=== PATIENT | male | born 1985 | race Caucasian/White ===

== ENCOUNTER 2023-12-23 15:53 | Outpatient (AMB) | payer BC, SELFPAY ==
--- NOTE | 2023-12-23 15:58 | MHC.PC.OV ---
Vital Signs 12/23/23 16:04 12/23/23 16:52 Height 5 ft 11 in Weight 210 lb BMI 29.3 BP 136/88 132/76 Blood Pressure Location Lt brachial Rt brachial Position Sitting Sitting Pulse 103 H 90 Pulse Source Pulse Oximeter Pulse Oximetry (%) 98 Oxygen Delivery Method Room Air Intake Visit Reasons: order checker packer processer, requests physical Intake Note: pt is here to establish care with PCP. Requesting PE Allergies amoxicillin [AMOXICILLIN] Allergy (Unknown, Verified 12/23/23 15:59) HIVES, ? reaction , rash Penicillins [PENICILLINS] Allergy (Unknown, Verified 12/23/23 15:59) HIVES Medication List - Last Reconciled 12/23/23 by SHEMAR Ngo Tobacco use date assessed: 12/23/23 Dental Screening Dental Screen Date: 12/23/23 Did you have a dental visit in the last 12 months?: Yes Did you have a dental problem in the last 6 months where you did not have access to dental care?: No Was dental information given to patient?: Patient has dentist HPI order checker packer processer, requests physical HPI Details New pt is here for a PE. Will order labs. Pt c/o increased allergy symptoms. He is currently taking claritin D which is not helping. Will have pt stop this and start cetirizine 2 tabs bid. Pt c/o right hand numbness. He is a diesel automotive technician. Will order EMG/nerve conduction testing. [facility] Surgical History No pertinent past surgical history Social History Housing: House Patient Tobacco Use Status: Former Tobacco user Tobacco use type: Cigarette e-Cigarette/Vaping Use: Never Used service: Yes Current occupational status: employed Cognitive needs: No Hearing needs: No Vision needs: No Questionnaire PHQ-9 Over the last 2 weeks, how often have you been bothered by any of the following problems? 43589 - PHQ-9 Billing: Patient declined-do not bill Source: Developed by Drs. Galileo Tong, Jennifer Nielson, Stanley Holguin and colleagues, with an educational harpal from [employer]. WARREN-7 AMB Questionnaire WARREN-7 Assessment Billing WARREN-7 Assessment Tool: pt declined-do not bill Review of Systems Const Denies chills and Denies fever(s) Eyes Denies blurry vision ENT Denies vertigo, Denies dizziness and Denies sore throat Card Denies chest pain at rest, Denies chest pain with activity, Denies diaphoresis, Denies dyspnea and Denies dyspnea on exertion Resp Denies cough, Denies dyspnea, Denies dyspnea on exertion and Denies wheezing GI Denies abdominal pain, Denies melena, Denies hematochezia, Denies constipation, Denies diarrhea and Denies loose stools Denies hematuria Musc Denies numbness and Denies tingling Skin/Breast Denies lesions Neuro Denies vertigo, Denies dizziness, Denies numbness and Denies tingling Psych Denies anxiety, Denies depression, Denies homicidal ideation, Denies suicidal ideation and Denies other (substance abuse) Aller/Immun Denies wheezing Physical exam (Primary Care) Vital Signs: Last Vital Signs Pulse 103 H 12/23/23 16:04 BP 132/76 12/23/23 16:52 Pulse Ox 98 12/23/23 16:04 Oxygen Delivery Method Room Air 12/23/23 16:04 BMI result Body Mass Index 29.3 Tobacco/Smoking Status: Tobacco use Status Tobacco use date assessed 12/23/23 12/23/23 16:04 Patient Tobacco Use Status Former Tobacco user 12/23/23 16:10 Tobacco use type Cigarette 12/23/23 16:10 e-Cigarette/Vaping Use Never Used 12/23/23 16:04 PHQ-9: PHQ-9 Score PHQ-9: Total score 0 12/23/23 16:04 Thrive Assessment: Date of Thrive Assessment Date Thrive assessed 12/23/23 16:10 Const General: cooperative Nutritional Appearance: well nourished Orientation/consciousness: patient oriented x3 HENMT Head: Yes normal to inspection, Yes normocephalic and Yes atraumatic Ears: TM's normal bilaterally Eyes General: appearance normal, both eyes and all related structures Alignment and Position: alignment normal and position normal Neck Neck: Yes normal visual inspection and Yes no lymphadenopathy Thyroid: Thyroid normal Resp Effort & Inspection: normal respiratory effort Auscultation: clear to auscultation bilaterally Cardio Rate: regular rate Rhythm: regular rhythm Heart sounds: S1 normal heart sound present, S2 normal heart sound present and no murmurs GI Palpation (GI): Soft to palpation and nontender Auscultation: normal bowel sounds Male General Exam: Yes normal external exam Penis: normal penis Scrotum: scrotum normal, testes descended bilaterally and no inguinal hernias Testes: no testicular mass Skin Other: vesicular lesions to left hand dorsal aspect (poison vaishali), singular vesicular lesions to bilat ankles (poison vaishali) Rashes: no rashes Neuro General: patient oriented x3, moves all extremities, no focal motor deficits and deep tendon reflexes 2+ bilaterally Romberg Test: Negative Extrem Other: + phalens to right, - tinels Psych Appearance: grossly normal Mental Status: mental status grossly normal Speech and movement: Normal speech and movement present Affect: normal affect Attitude: cooperative Thought process: Normal thought process present Thought content: Normal thought content present Insight: Good insight present (Psych) Judgement: Good judgement present (Psych) Assessment and Plan Assessment & Plan (1) Encounter for routine adult physical exam with abnormal findings: Code(s): Z00. - Encounter for general adult medical examination with abnormal findings Plan: Labs ordered (2) Poison vaishali: Code(s): L23.7 - Allergic contact dermatitis due to plants, except food Plan: Improving (3) Numbness of right hand: Code(s): R20.0 - Anesthesia of skin Plan: EMG and nerve conduction. will have him wear a wrist brace at night Plan The patient agreed to the use of a medical laboratory assistant for this encounter. Scribed for SHEMAR Zabala by Che Gan medical laboratory assistant, on 12/23/2023 at 16:35 EST. Orders: Orders Comprehensive [place]. Panel Fast Today Z00.01 - Encounter for general adult medical examination with abnormal findings UA CC w/rflx Micro + Cult Today Z00.01 - Encounter for general adult medical examination with abnormal findings NE electromyogram (EMG) Today R20.0 - Anesthesia of skin NE nerve conduction velocity Today R20.0 - Anesthesia of skin Complete Blood Count Auto Diff Today Z00.01 - Encounter for general adult medical examination with abnormal findings TSH reflex Free T4 Today Z00.01 - Encounter for general adult medical examination with abnormal findings Lipid Panel Today Z00. - Encounter for general adult medical examination with abnormal findings Coding Level of Care Code New Pt Prev Care 18-39yr(00939 Diagnoses Encounter for routine adult physical exam with abnormal findings Z00.01 Poison vaishali L23.7 Numbness of right hand R20.0
[2023-12-23 16:04] VITALS: BP 136/88; PULSE 103; O2SAT 98; BMI 29.3
[2023-12-23 16:52] VITALS: BP 132/76; PULSE 90
== END 2023-12-23 17:01 | disposition home or self-care (01) ==
PROVIDERS: PCP Nurse Practitioner Family; Visit Provider Nurse Practitioner Family
DX: Z00.00 Encounter for general adult medical examination without abnormal findings (principal); L23.7 Allergic contact dermatitis due to plants, except food; R20.0 Anesthesia of skin
CPT/HCPCS: 99385

== ENCOUNTER 2025-01-18 14:46 | Outpatient (AMB) | payer BC, SELFPAY ==
[2025-01-18 14:51] VITALS: BP 140/92; PULSE 103; RESP 16; O2SAT 98; BMI 26.6
--- NOTE | 2025-01-18 14:51 | A.OFFPC_ITS ---
Vital Signs 01/18/25 14:51 01/18/25 15:33 Height 5 ft 11 in Weight 191 lb BMI 26.6 BP 140/92 H 126/88 Blood Pressure Location Lt brachial Rt brachial Position Sitting Sitting Respiration 16 Pulse 103 H Pulse Source Pulse Oximeter Pulse Oximetry (%) 98 Oxygen Delivery Method Room Air Intake Visit Reasons: PE Blood Bank Laboratory Technician Required: No Allergies amoxicillin (AMOXICILLIN) Allergy (Unknown, Verified 01/18/25 15:24) HIVES, ? reaction , rash Penicillins (PENICILLINS) Allergy (Unknown, Verified 01/18/25 15:24) HIVES Medication List - Last [facility] Known Home Meds Tobacco use date assessed: 12/23/23 Dental Screening Dental Screen Date: 12/23/23 HPI PE HPI Details History of Present Illness The patient is a 39-year-old male presenting for a follow-up physical examination. He denies experiencing any chest pain, dyspnea, abdominal pain, hematochezia, constipation, or diarrhea. The patient reports experiencing significant stress related to work and family responsibilities. HX of allergies, will get resp allgery testing, pt reported all antihistamines made him very sleepy. elevated BP initially. Health Maintenance - Encouraged to complete fasting laborat ory tests in the near future Social History - Reports significant stress related to work and family responsibilities Review of Systems - Cardiovascular: Denies chest pain - Respiratory: Denies dyspnea - Gastrointestinal: Denies abdominal luci n, hematochezia, constipation, diarrhea Physical Exam General: Cooperative, healthy appearing, comfortable, no acute distress and well developed Orientation: Patient oriented x3 Limitations: No limitations Head: Normal to inspection Ears: Hearing grossly normal bilaterally Nose: Normal external nose present Face and sinus: Normal facial exam Eyes: Appearance normal, both eyes and all related structures Neck: Normal visual inspection and Yes full ROM Respiratory: Normal respiratory effort and able to speak in complete sentences. Clear to auscultation bilaterally Cardiovascular: Regular rate and rhythm. Normal S1 and S2 GI: Normal to inspection. Soft to palpation and nontender : testicles without masses/lesions and no hernias appreciated Skin: No rashes or lesions noted Neuro: Patient oriented x3 Extremities: Normal to inspection Results Plan The patient is advised to complete fasting laboratory tests in the near future to monitor his health status. He is encouraged to manage stress through appropriate coping mechanisms and to seek further consultation if stress becomes unmanageable. Discussion Notes I discussed with the patient the importance of completing fasting laboratory tests to assess his overall health. We also talked about stress management strategies and the importance of addressing stressors related to work and family. Patient Instructions - Schedule and complete fasting laborato ry tests soon - Practice stress management techniques and reach out if stress becomes overwhelming -BPs from home, drop off values in the n ear future. [facility] Surgical History No pertinent past surgical history Social History Housing: House Patient Tobacco Use Status: Former Tobacco user Tobacco use type: Cigarette e-Cigarette/Vaping Use: Never Used service: Yes Current occupational status: employed Cognitive needs: No Hearing needs: No Vision needs: No Questionnaire PHQ-9 Over the last 2 weeks, how often have you been bothered by any of the following problems? 1. Little interest or pleasure in doing things: not at all 2. Feeling down, depressed, or hopeless: not at all 3. Trouble falling or staying asleep, or sleeping too much: not at all 4. Feeling tired or having little energy: not at all 5. Poor appetite or overeating: not at all 6. Feeling bad about yourself - or that you are a failure or have let yourself or your family down: not at all 7. Trouble concentrating on things, such as reading the newspaper or watching television: not at all 8. Moving or speaking so slowly that other people could have noticed. Or the opposite - being so fidgety or restless that you have been moving around a lot more than usual: not at all 9. Thoughts that you would be better off or of hurting yourself in some way: not at all Total score: 0 Depression Screening Interpretation: Negative Depression Screening Done: Yes 99461 - PHQ-9 Billing: Yes Source: Developed by Drs. Galileo Tong, Jennifer Nielson, Stanley Holguin and colleagues, with an educational harpal from [employer]. Thrive Questionnaire I am a: Patient What is your living situation today?: I have a steady place to live Within the past 12 months, did the food you bought not last and you didn't have the money to get more?: I choose not to answer this question Within the past 12 months, did you worry whether your food would run out before you got money to buy more?: I choose not to answer this question Do you have trouble paying for medicines?: I choose not to answer this question Do you have trouble getting transportation to medical appointments?: I choose not to answer this question Do you have trouble paying your heating and electricity bill?: I choose not to answer this question Do you have trouble taking care of your child, family member or friend?: I choos e not to answer this question Do you have trouble with day-to-day activities such as bathing, preparing meals, shopping, managing finances, etc.?: I choose not to answer this question Are you currently unemployed and looking for a job?: I choose not to answer this question Are you interested in more education?: I choose not to answer this question Please select the resources that you would like help with: None Currently or been in a relationship where the following occur: I choose not to answer THRIVE Score: 0 AUDIT C Alcohol Use Questionnaire (AUDIT-C) 1. How often do you have a drink containing alcohol?: 2-4 times a month 2. How many drinks containing alcohol do you have on a typical day when you are drinking?: 3 or 4 3. How often do you have six or more drinks on one occasion?: Less than monthly Total Score: 4 Score Reviewed/Action Taken: Yes WARREN-7 AMB Questionnaire WARREN-7 Feeling nervous, anxious, or on edge: 1 = Several days Not being able to stop or control worryin = Not at all Worrying too much about different things: 0 = Not at all Trouble relaxin = Not at all Being so restless that it is hard to sit still: 0 = Not at all Becoming easily annoyed or irritable: 1 = Several days Feeling afraid as if something awful might happen: 1 = Several days Total WARREN-7 score (0-4 normal; 5-9 mild; 10-14 moderate; 15-21 severe): 3 Source: Developed by Drs. Galileo Tong, Jennifer Nielson, Stanley Holguin and colleagues, with an educational harpal from [employer]. WARREN-7 Assessment Billing WARREN-7 Assessment Tool: WARREN-7 Assessment 47401 Physical exam (Primary Care) Vital Signs: Last Vital Signs Pulse 103 H 01/18/25 14:51 Resp 16 01/18/25 14:51 BP 140/92 H 01/18/25 14:51 Pulse Ox 98 01/18/25 14:51 Oxygen Delivery Method Room Air 01/18/25 14:51 BMI result Body Mass Index 26.6 Tobacco/Smoking Status: Tobacco use Status Tobacco use date assessed 12/23/23 01/18/25 14:55 Patient Tobacco Use Status Former Tobacco user 01/18/25 14:55 Tobacco use type Cigarette 01/18/25 14:55 e-Cigarette/Vaping Use Never Used 01/18/25 14:55 PHQ-9: PHQ-9 Score PHQ-9: Total score 0 01/18/25 15:14 Depression Screening Interpretation: Negative Currently or been in a relationship where the following occur: I choose not to answer Coding Level of Care Code Est Pt Prev Care 18-39y(35555) Diagnoses Encounter for routine adult physical exam with abnormal findings Z00. Allergies T78.40XA Elevated BP without diagnosis of hypertension R03.0 Additional Codes WARREN-7 Assessment Billing - WARREN-7 Assessment Tool: WARREN-7 Assessment 52066 ([id number]) PHQ-9 - 89666 - PHQ-9 Billing: Yes ([id number]) Assessment & Plan Assessment & Plan (1) Encounter for routine adult physical exam with abnormal findings: Code(s): Z00. - Encounter for general adult medical examination with abnormal findings Category: Medical (2) Allergies: Code(s): T78.40XA - Allergy, unspecified, initial encounter Category: Medical (3) Elevated BP without diagnosis of hypertension: Code(s): R03.0 - Elevated blood-pressure reading, without diagnosis of hypertension Category: Medical Plan . Orders: Orders Complete Blood Count Auto Diff Today Z00.01 - Encounter for general adult medical examination with abnormal findings Comprehensive [place]. Panel Fast Today Z00.01 - Encounter for general adult medical examination with abnormal findings TSH reflex Free T4 Today Z00.01 - Encounter for general adult medical examination with abnormal findings UA CC w/rflx Micro + Cult Today Z00.01 - Encounter for general adult medical examination with abnormal findings Lipid Panel Today Z00.01 - Encounter for general adult medical examination with abnormal findings Resp Allergy Profile Region I Today T78.40XA - Allergy, unspecified, initial encounter
[2025-01-18 15:33] VITALS: BP 126/88
== END 2025-01-18 15:52 | disposition home or self-care (01) ==
LOC: HO.HMCC 14:47
PROVIDERS: PCP Nurse Practitioner Family; Visit Provider Nurse Practitioner Family
DX: Z00.01 Encounter for general adult medical examination with abnormal findings (principal); T78.40XA Allergy, unspecified, initial encounter; R03.0 Elevated blood-pressure reading, without diagnosis of hypertension

== ENCOUNTER → 2025-01-18 14:46 | Outpatient (BNVA) | payer BC, SELFPAY | PROVIDERS: PCP Nurse Practitioner Family; Visit Provider Nurse Practitioner Family | DX: Z00.01 Encounter for general adult medical examination with abnormal findings (principal); R03.0 Elevated blood-pressure reading, without diagnosis of hypertension; T78.40XA Allergy, unspecified, initial encounter; X58.XXXA Exposure to other specified factors, initial encounter; Z63.8 Other specified problems related to primary support group | CPT/HCPCS: 96127 ==

== ENCOUNTER 2025-01-26 08:08 | Outpatient (REF) | payer BC, SELFPAY ==
[2025-01-26 10:17] LABS: Appearance Urine Clear; Glucose Urine UA Negative (Negative); PH 6.0 (5.0-9.0); Specific Gravity - Urine 1.020 (1.005-1.025)
[2025-01-26 10:18] LABS: MANUAL DIFF FLAG NO
[2025-01-26 10:27] LABS: Hematocrit 41.3 % (42.0-52.0); Hemoglobin 13.6 g/dl (14.0-18.0); Imm Gran Abs Auto 0.01 X10*3/uL (0.00-0.03); Imm Gran Pct Auto 0.2 % (0.0-0.4); Lymphocytes Absolute Auto 2.0 X10*3/uL (1.2-4.9); Mean Corpuscular HGB Conc 32.9 g/dl (31.0-36.0); Mean Corpuscular Hemoglobin 28.8 pg (27.0-33.0); Mean Corpuscular Volume 87.3 fL (80.0-98.0); NRBC Abs Auto 0.000 X10*3/uL (0.0-0.012); NRBC Pct Auto 0.0 /100WBC (0.0-0.2); Platelet Count 156 X10*3/uL (160-400); Red Blood Count 4.73 X10*6/uL (4.60-5.80); White Blood Count 5.1 X10*3/uL (4.8-10.8)
[2025-01-26 10:40] LABS: Alanine Aminotransferase 49 U/L (0-40); Albumin Level 4.8 g/dL (3.5-5.0); Alkaline Phosphatase 56 U/L (39-117); Anion Gap 13 (12-20); Aspartate Amino Transferase 36 U/L (5-37); Blood Urea Nitrogen 26 mg/dL (9-16); Calcium 9.4 mg/dL (8.4-10.2); Carbon Dioxide 27 mmol/L (22-29); Chloride 105 mmol/L (96-108); Cholesterol 219 mg/dL (<200); Estimated Glomerular Filt Rate > 60; HDL Cholesterol 38 mg/dL (>40); Potassium 4.5 mmol/L (3.3-5.1); Sodium 140 mmol/L (135-145); Total Protein 7.1 g/dL (6.5-8.0); Triglycerides 266 mg/dL (<150)
[2025-01-29 23:04] LABS: Class Alternaria alternata 0; Class Aspergillus fumigatus 0; Class Bermuda Grass 0; Class Birch 0; Class Cat Dander 0; Class Cladosporium herbarum 0; Class Cockroach 0; Class Common Ragweed 0; Class Cottonwood 0; Class Derm. pterony 0; Class Dermatophagoides farinae 0; Class Dog Dander 0; Class Elm 0; Class Maple Box Elder 0; Class Mountain Cedar 0; Class Mouse Urine Protein 0; Class Mugwort 0; Class Oak 0; Class Penicillium crysogenum 0; Class Rough Pigweed 0; Class Sheep Sorrel 0; Class Sycamore 0; Class Timothy Grass 0; Class Walnut Tree 0; Class White Ash 0; Class White Mulberry 0; D002 - IgE D farinae <0.10 kU/L; E001 - IgE Cat Dander <0.10 kU/L; E005 - IgE Dog Dander <0.10 kU/L; G006 - IgE Timothy Grass <0.10 kU/L; I006-IgE Cockroach, German <0.10 kU/L; M002 - IgE Cladosporium herbar <0.10 kU/L; M003 - IgE Aspergillus fumigat <0.10 kU/L; M006 - IgE Alternaria alternat <0.10 kU/L; T001 IgE Maple/Box Elder <0.10 kU/L; T006 - IgE Cedar, Mountain <0.10 kU/L; T007 - IgE Oak, White <0.10 kU/L; T008 IgE Elm, American <0.10 kU/L; T010 - IgE Walnut <0.10 kU/L; T011 - IgE Maple Leaf Sycamore <0.10 kU/L; T014 - IgE Cottonwood <0.10 kU/L; T015 - IgE Ash, White <0.10 kU/L; T070 - IgE White Mulberry <0.10 kU/L; W001 - IgE Ragweed, Short <0.10 kU/L; W006 - IgE Mugwort <0.10 kU/L; W014 IgE Pigweed, Common <0.10 kU/L; W018 IgE Sheep Sorrel <0.10 kU/L
== END 2025-01-26 08:09 | disposition home or self-care (01) ==
LOC: HO.HMGCLDS 08:08
PROVIDERS: PCP Nurse Practitioner Family; Visit Provider Nurse Practitioner Family
DX: Z00.01 Encounter for general adult medical examination with abnormal findings (principal); T78.40XA Allergy, unspecified, initial encounter; R74.8 Abnormal levels of other serum enzymes; D64.9 Anemia, unspecified; E78.5 Hyperlipidemia, unspecified
CPT/HCPCS: 36415; 80053; 80061; 81003; 82785; 84443; 85025; 86003

== ENCOUNTER 2025-03-20 09:42 | Outpatient (REF) | payer BC, SELFPAY ==
--- NOTE | ~2025-03-20 | US_ITS ---
CLINICAL HISTORY: R74.8 - Abnormal levels of other serum enzymes ULTRASOUND OF THE ABDOMEN COMPARISON: None provided. FINDINGS: Fatty liver is noted, without focal lesion. Liver measures 12.9 cm in length on image 31. There is minimal prominence of the intrahepatic bile ducts without focal lesion. Pancreas is not well visualized, the visualized portions are unremarkable. Gallbladder is unremarkable. No stone or sludge. No gallbladder wall thickening or pericholecystic fluid. Common bile duct measures 3-4 mm in caliber. Both kidneys are normal in echogenicity. Right kidney measures 11.8 cm in length. Left kidney measures 11.4 cm in length. Mild lobularity of a portion of the left kidney is noted. No stone or hydronephrosis. Spleen is unremarkable and estimated to measure approximately 11.3 cm in size. No fluid collections. Visualized portions of the abdominal aorta and IVC are unremarkable. IMPRESSION: 1. No acute disease. 2. Fatty liver is noted. 3. No gallstones or sludge. No evidence of acute cholecystitis. No biliary ductal dilatation. This document has been electronically signed by: Arnie Ansari M.D. on 03/21/2025 05:37:40
== END 2025-03-20 09:43 | disposition home or self-care (01) ==
LOC: HO.HMGCX 09:42
PROVIDERS: PCP Nurse Practitioner Family; Visit Provider Nurse Practitioner Family
DX: R74.8 Abnormal levels of other serum enzymes (principal)
CPT/HCPCS: 76700

== ENCOUNTER → 2025-03-20 09:45 | Outpatient (BNV) | payer BC, SELFPAY | PROVIDERS: PCP Nurse Practitioner Family; Visit Provider Radiology Diagnostic Radiology | DX: K76.0 Fatty (change of) liver, not elsewhere classified (principal) | CPT/HCPCS: 76700 ==